=== PATIENT | male | born 1955 | race Caucasian/White ===

== ENCOUNTER 2022-01-23 00:20 | Emergency (ER) | payer MEDICARE, SELFPAY ==
[2022-01-23 00:21] VITALS: BP 151/93; PULSE 74; RESP 15; TEMP 37.1; O2SAT 96; BMI 39.3
--- NOTE | 2022-01-23 00:38 | CT_ITS ---
STUDY: CT ABDOMEN AND PELVIS WITHOUT CONTRAST REASON FOR EXAM: Male, 66 years old. Kidney Stone, R flank pain RADIATION DOSAGE (If Supplied By Facility): CTDIvol = ( 23.91 ) mGy, DLP = ( 1314.12 ) mGycm TECHNIQUE: Transaxial images were obtained from the dome of the diaphragm to the symphysis pubis without oral contrast, and without intravenous contrast. Sagittal and coronal images were reconstructed. Individualized dose optimization techniques were used for this CT. COMPARISON: None. LIMITATIONS: None. LOWER CHEST: Pleural/parenchymal scarring with pleural defect along the lateral right lower lobe with punctate metallic fragments, may represent postsurgical changes.. LIVER: Normal. GALLBLADDER/BILE DUCTS: Normal. PANCREAS: Normal. SPLEEN: Normal. ADRENAL GLANDS: Normal. KIDNEYS/URETERS/BLADDER: Mild right hydroureteronephrosis due to a 9 mm calculus at the right vesicoureteral junction. Additional nonobstructive bilateral nephrolithiasis. Intermediate density partially exophytic right superior pole structure measuring 2.4 x 2.2 cm. Urinary bladder is decompressed, limiting evaluation. Mild urinary bladder wall thickening. RETROPERITONEUM/AORTA: Normal. BOWEL/MESENTERY: Normal. APPENDIX: Identified and normal. PERITONEUM: Normal. REPRODUCTIVE ORGANS: Normal. BONES/SOFT TISSUES: Metallic foci within the deep soft tissues of the right chest wall extending to the pleural surface. No acute osseous abnormality. OTHER: None. CT/Abdomen/Pelvis without Cont IMPRESSION: 1. Mild right hydroureteronephrosis due to a 9 mm calculus at the right vesicoureteral junction. 2. Additional nonobstructive bilateral nephrolithiasis. 3. 2.4 cm intermediate density right renal structure, further characterization with nonemergent MR abdomen with contrast is recommended. 4. Mild urinary bladder wall thickening, may be due to decompression or cystitis. 5. Pleural/parenchymal scarring and metallic fragments along the right lateral pleural space. Correlate with surgical history. Electronically Signed: Allan Sandy MD at 1:56 EDT ,
--- NOTE | 2022-01-23 00:39 | EDS_ITS ---
HPI HPI - GI History of Present Illness Chief Complaint: Flank Pain Informant: patient Abdominal Pain/Flank Pain Onset: Hours (3) Context: Sudden Onset Timing: Continuous Quality: Aching Location: Right Flank (Mostly in back without radiation) Current Severity: Mild Maximum Severity: Severe Worsened by: Nothing Relieved by: - (X-strength Tylenol) Nausea/Vomiting/Emesis GI Symptom: Negative for Nausea and Vomiting Diarrhea/Melena/Hematochezia GI Symptom: Negative for Diarrhea, Melena and Hematochezia Associated Symptoms Associated Symptoms: Negative for Dysuria, Frequency, Hematuria and Urgency Narrative Narrative: Sudden onset of pain in his right low back that started several hours ago, it became pretty severe and he could not find a comfortable position so he took extra strength Tylenol and came to the emergency department but now the Tylenol is kicked and he had his pain is lessened although not resolved. It has been a long time since he had a kidney stone and had to have it surgically removed but he thinks this feels similar, does not exactly sure because it was over 10 years ago. PFSH PFS Medical History Kidney stones Tumor Home Medications NK 01/23/22 [History Last Taken Unknown] hydrocodone-acetaminophen 1 tab PO Q4H PRN PRN 3 Days #18 tablet 01/23/22 [Rx Last Taken Unknown] ondansetron 8 mg PO Q8H PRN PRN #15 tab 01/23/22 [Rx Last Taken Unknown] tamsulosin 0.4 mg PO DAILY #7 capsule 01/23/22 [Rx Last Taken Unknown] Allergy/AdvReac Type Severity Reaction Status Date / Time Penicillins Allergy Hives Verified 01/23/22 00:23 Social History Smoking Status: Never smoker ROS ROS ED Constitutional Constitutional ED: Denies chills or fever(s) Eyes Eyes: Denies change in vision or diplopia ENT ENT ED: Denies rhinorrhea or sore throat Cardiovascular Cardiovascular: Denies chest pain or palpitations Respiratory/Chest Respiratory/Chest: Denies cough or dyspnea Gastrointestinal Gastrointestinal: Denies abdominal pain, diarrhea, nausea or vomiting Genitourinary Genitourinary ED: Reports flank pain; Denies dysuria or hematuria Musculoskeletal Musculoskeletal: Reports back pain; Denies neck pain Integumentary Denies abscess or rash Neurologic Neurologic: Denies headache(s), paresthesias or weakness Psychiatric Psychiatric: Denies anxiety or suicidal thoughts EXAM Physical Exam Const Vital Signs: 01/23/22 00:21 01/23/22 02:20 Temperature 98.7 F Temperature Source Temporal Pulse Rate 74 Respiratory Rate 15 17 Blood Pressure 151/93 H Blood Pressure Mean 112 Pulse Ox 96 98 Oxygen Delivery Method Room Air Room Air Positive well nourished, well developed and obese Constitutional Narrative: Well-appearing no distress General Appearance ED: well developed and NAD Nutritional Appearance: obese HEENT Reports moist mucous membranes normocephalic and atraumatic Eyes PERRL and EOMs intact bilaterally Neck full ROM and supple Resp normal respiratory effort and clear to auscultation bilaterally Cardio regular rate, regular rhythm and no murmurs GI non-tender and non-distended Auscultation: normoactive bowel sounds Palpation: soft Back/Spine normal ROM and normal to inspection General Back: CVA tenderness right (mild) and other FROM Extremity normal to inspection General Extremety ED: Negative for edema, pulses abnormal or tenderness General Extremity: Negative for edema or pulses abnormal Neuro oriented x3, CN's II-XII intact bilaterally and no sensory deficits noted Sensorium / Orientation: awake and alert Motor Exam: strength 5/5 throughout Skin no rashes or lesions noted and no wounds MDM MDM MDM Narrative Medical decision making narrative: Urinalysis shows microscopic hematuria and is otherwise clean. CT shows 9 mm right UVJ stone with mild hydronephrosis/hydroureter. No other acute abnormalities. This explains patient's symptoms. Also there is an indeterminate lesion on the right kidney which I discussed with him, differential may involve simple cysts and it may involve cancer, also I advised he follow-up according to the radiologist's recommendations and get further imaging to differentiate it at some point in the future not emergently. He understood. He did request pain medication although he initially declined an offer for it, he was given Toradol IM and an oral [place] which helped him feel better. I will put him on Flomax in addition to [place] and some Zofran to use as needed, we discussed reasons to return, given urine strainers to go home with, urologic follow-up advised if he does not pass the stone but tolerating/controlling symptoms for 1 week. Lab Data Attestation: I reviewed the patient's lab results. Labs: Laboratory Results - last 24 hr 01/23/22 00:48 Urine Color Yellow Urine Clarity Clear Urine pH 5.0 Ur Specific [place] 1.030 Urine Protein 15 H Urine Glucose (UA) Normal Urine Ketones 5 H Urine Occult Blood 150 H Urine Nitrite Negative Urine Bilirubin Negative Urine Urobilinogen Normal Ur Leukocyte Esterase Negative Urine RBC 0-5 SEEN Urine WBC 0 SEEN Ur Squamous Epith Cells 0 SEEN Urine Bacteria 1+ Urine Mucus 1+ Radiography Diagnostic Testing: Clinical Impression(s) from Imaging Studies Abdomen/Pelvis CT 01/23/22 00:38 IMPRESSION: 1. Mild right hydroureteronephrosis due to a 9 mm calculus at the right vesicoureteral junction. 2. Additional nonobstructive bilateral nephrolithiasis. 3. 2.4 cm intermediate density right renal structure, further characterization with nonemergent MR abdomen with contrast is recommended. 4. Mild urinary bladder wall thickening, may be due to decompression or cystitis. 5. Pleural/parenchymal scarring and metallic fragments along the right lateral pleural space. Correlate with surgical history. Electronically Signed: Allan Sandy MD at 1:56 EDT , Discharge Plan Triage Chief Complaint: Flank Pain ED Provider: Sal Alamo Dx/Rx/DC Orders Clinical Impression: Ureterolithiasis, Renal colic on right side Instructions: ED Urine Strainer, ED Kidney Stone w/ Colic Prescriptions: New hydrocodone-acetaminophen [hydrocodone-acetaminophen] 1 TABLET tablet 1 tab PO Q4H PRN PRN (Reason: Pain) 3 Days Qty: 18 RF: 0 ondansetron [ondansetron] 4 MG tablet 8 mg PO Q8H PRN PRN (Reason: Nausea) Qty: 15 RF: 0 tamsulosin 0.4 mg capsule 0.4 mg PO DAILY Qty: 7 RF: 0 No Action NK RF: 0 Primary Care Provider: Avelino Gray Referrals: Cj Long MD [STAFF PHYSICIAN] - 1 Week if not improving (or [facility] urologist if you prefer) Avelino Gray MD [Primary Care Provider] - Disposition Disposition: Home, Self Care
[2022-01-23 00:52] LABS: Squamous Epithelial Cells - UA 0 SEEN /hpf (0-5); White Blood Cells 0 SEEN /hpf (0-5)
[2022-01-23 00:53] LABS: Color, Urine Yellow (Yellow); Glucose, Dipstick Normal (Normal); Ketone-Dipstick 5 mg/dl (Negative); Leukocyte Esterase-Dipstick Negative /ul (Negative); Nitrite-Dipstick Negative (Negative); Occult Blood-Urine 150 /ul (Negative); Protein-Dipstick 15 mg/dl (Negative); Urine Bilirubin Dipstick Negative (Negative); Urine Clarity Clear (Clear); Urine Urobilinogen Normal (Normal)
[2022-01-23 01:15] LABS: Bacteria 1+ /hpf (None Seen); Mucous, Urine 1+ /hpf (<or=2+); Red Blood Cells-Urine 0-5 SEEN /hpf (0-5)
[2022-01-23] MEDS: HYDROcodone Bitartrate/Apap 5/325 Tablet PO (01:39)
[2022-01-23] MEDS: Ketorolac 15 MG/ML Vial IV (01:39)
[2022-01-23 02:20] VITALS: RESP 17; O2SAT 98
[2022-01-23 02:42] VITALS: BP 141/91; PULSE 64; RESP 16; O2SAT 99
== END 2022-01-23 02:48 | disposition home or self-care (01) ==
PROVIDERS: Emergency Provider Emergency Medicine; PCP Family Medicine; Visit Provider Emergency Medicine
DX: N13.2 Hydronephrosis with renal and ureteral calculous obstruction (principal); N28.9 Disorder of kidney and ureter, unspecified
CPT/HCPCS: 74176; 81001; 96374; 99282

== ENCOUNTER 2025-09-19 11:11 | Inpatient (IN) | payer MEDICARE, SELFPAY ==
[2025-09-19] VITALS (20 sets, daily range): BP systolic 72–165; BP diastolic 53–117; PULSE 0–113; RESP 16–40; TEMP 35.7–37.1; O2SAT 28–93; BMI 41.1; BMI 41.3
--- NOTE | 2025-09-19 11:30 | RAD_ITS ---
PROCEDURE: CHEST 1 VIEW (PORTABLE) 09/19/2025 REASON FOR EXAM: INTUBATION TECHNIQUE: Frontal view of the chest. COMPARISON: None FINDINGS: Hardware: Endotracheal tube is in satisfactory position above the cedric. Nasogastric tube has been introduced in the side hole is near the fundus. The tip is not imaged but is likely over the body. Heart: Heart size is mildly enlarged. Lungs: Atelectasis or airspace disease right upper lobe. This may be exacerbated by the overlying anterior 1st rib. Otherwise, the lungs are clear. Bones: The bones are unremarkable. RAD/Chest 1 View (Portable) IMPRESSION: Satisfactory position of the endotracheal and nasogastric tubes. Reading Location: [id number]
--- NOTE | 2025-09-19 11:32 | EKG12_ITS ---
Test Reason : CODE BLUE Blood Pressure : */* mmHG Vent. Rate : 109 BPM Atrial Rate : 109 BPM P-R Int : 206 ms QRS Dur : 168 ms QT Int : 392 ms P-R-T Axes : 54 -42 -19 degrees QTcB Int : 527 ms Sinus tachycardia Left axis deviation Right bundle branch block Possible Lateral infarct , age undetermined Inferior infarct , age undetermined Abnormal ECG Confirmed by Robert Vides (Doug), editor continuity and script YARY ZAMORA ([id number]) on 09/20/2025 11:06:27 AM Also confirmed by Robert Vides ([id number]), editor continuity and script YARY ZAMORA ([id number]) on 09/21/2025 11:13:18 AM Referred By: NIMO Confirmed By: Robert Vides
--- NOTE | 2025-09-19 11:39 | CT_ITS ---
PROCEDURE: BRAIN/HEAD WITHOUT CONTRAST; SPINE CERVICAL WITHOUT CONTRAS 09/19/2025 REASON FOR EXAM: ALTERED MENTAL STATUS; FALL TECHNIQUE: Procedure Code: CTBR; CTSPC Modality: CT Procedure: BRAIN/HEAD WITHOUT CONTRAST; SPINE CERVICAL WITHOUT CONTRAS Coronal and Sagittal reconstruction series were provided. One or more dose reduction techniques were used (e.g., Automated exposure control, adjustment of the mA and/or kV according to patient size, use of iterative reconstruction technique. RADIATION DOSE SUMMARY: DLP: 1684 mGycm COMPARISON: None. FINDINGS: CT HEAD: No acute hemorrhage. No acute transcortical infarct. 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 Patchy periventricular and subcortical white matter hypodensities likely reflect chronic microvascular ischemic changes. A curvilinear right frontal lobe hyperdensity likely reflects a developmental venous anomaly (series 2 image [id number]). No significant mass effect or brain herniation. The ventricular system and sulci/fissures are within normal limits of size and configuration for the patient's stated age. No extra-axial fluid collection. The basal cisterns are patent. The mastoid air cells are clear. The paranasal sinuses are predominantly clear. The calvarium appears intact. Atherosclerotic calcification of the carotid siphons. CT CERVICAL SPINE: The normal cervical lordosis is maintained. The atlantooccipital and atlantoaxial joints appear normally aligned. The atlas and axis are intact. The remaining cervical vertebral bodies are normal in height. The cervical vertebral bodies are normal in alignment.There is no evidence of focal lytic or sclerotic lesion in the cervical spine. Degenerative changes in the cervical spine. No high-grade spinal canal or neural foraminal stenosis. There is mild prevertebral soft tissue swelling. Partially visualized endotracheal tube extending to the cedric. Partially visualized orogastric tube coursing down the esophagus. CT/Spine Cervical without Contras IMPRESSION: 1. No CT evidence of acute intracranial hemorrhage, transcortical infarct, or s ignificant mass effect. 2. 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 3. No acute fracture or dislocation in the cervical spine. Reading Location: [id number]
--- NOTE | 2025-09-19 11:41 | EX.ED.DYSGE1 ---
HPI History of Present Illness Chief Complaint: Unresponsive Narrative Narrative: Chief complaint and HPI: 70-year-old male with unknown past medical history presents via EMS after ROSC from reported cardiopulmonary arrest. History obtained via EMS. They state that the patient was found unresponsive at [facility] after witnessed fall. A bystander did approximately 30 seconds of CPR in which she then found a faint radial pulse. EMS states on their arrival as well as here patient is minimally responsive with agonal breathing. Review of systems: See HPI Medications: As listed on the chart Allergies: As listed on the chart PFSH: Per chart Vital signs: As listed on the chart. Reviewed. Physical exam: Gen: Minimally responsive, agonal breathing Head: Normocephalic, abrasion to the scalp Eyes: Eyes spontaneously open, no sclera icterus, conjunctiva clear, PERRL ENT: TMs clear BL, dry mucous membranes, face atraumatic, nasal trumpet in Neck: Trachea midline, c-collar applied CV: RRR, no murmurs Resp: Incomprehensible sounds, gag reflex, breath sounds clear to auscultation bilaterally but diminished, agonal breathing, tachypneic GI: Abd soft, non-distended, no rebound or rigidity : Normal external genitalia Musc: Does not withdraw or localize to pain including sternal rub, no deformity Skin: Cool, pale, dusky Neuro: Minimally responsive, GCS 6 PFSH PFSH Medical History Tumor Kidney stones Home Medications ?Medication ?Instructions ?Recorded ?Last Taken ?Type NK 01/23/22 Unknown History Allergy/AdvReac Type Severity Reaction Status Date / Time Penicillins Allergy Hives Verified 09/19/25 11:16 Social History Smoking Status: Never smoker EXAM Physical Exam Const Vital Signs: 09/19/25 11:11 09/19/25 11:15 09/19/25 11:17 Temperature 97.8 F 96.2 F L Temperature [2] Temperature Source Temporal Core Pulse Rate 84 86 100 Pulse Rate [1] Pulse Rate [2] Respiratory Rate 40 H 16 16 Respiratory Rate [2] Respiratory Effort Respiratory Depth Respiratory Pattern Normal Blood Pressure 153/117 H 131/79 H Blood Pressure [2] Blood Pressure Mean 129 96 Pulse Ox 75 73 Oxygen Delivery Method Oxygen Flow Rate (L/min) 100 Fraction of Inspired Oxygen (FIO2) 100 09/19/25 11:17 09/19/25 11:18 09/19/25 11:24 Temperature Temperature [2] 98.7 F Temperature Source Pulse Rate Pulse Rate [1] 0 L Pulse Rate [2] 113 H Respiratory Rate Respiratory Rate [2] 25 H Respiratory Effort Normal Accessory Muscle Use Respiratory Depth Shallow Respiratory Pattern Normal Irregular Blood Pressure Blood Pressure [2] 130/79 H Blood Pressure Mean Pulse Ox Oxygen Delivery Method Ambu-Bag Oxygen Flow Rate (L/min) Fraction of Inspired Oxygen (FIO2) 09/19/25 12:17 09/19/25 13:11 09/19/25 13:33 Temperature 98.5 F 98.2 F Temperature [2] Temperature Source Core Core Pulse Rate 94 98 93 Pulse Rate [1] Pulse Rate [2] Respiratory Rate 20 H 22 H 22 H Respiratory Rate [2] Respiratory Effort Respiratory Depth Respiratory Pattern Blood Pressure 165/89 H 148/86 H 142/82 H Blood Pressure [2] Blood Pressure Mean 114 106 102 Pulse Ox 93 93 93 Oxygen Delivery Method Mechanical Ventilator Mechanical Ventilator Room Air Oxygen Flow Rate (L/min) Fraction of Inspired Oxygen (FIO2) MDM MDM MDM Narrative Medical decision making narrative: 70-year-old male with unknown past medical history presents via EMS after ROSC from reported cardiopulmonary arrest. History obtained via EMS. They state that the patient was found unresponsive at [facility] after witnessed fall. A bystander did approximately 30 seconds of CPR in which she then found a faint radial pulse. EMS states on their arrival as well as here patient is minimally responsive with agonal breathing. GCS 6. Pupils are equal and reactive bilaterally. CODE STATUS unknown but suspect full code. Patient emergently/immediately intubated. After intubation, patient became bradycardic and patient entered into cardiopulmonary arrest. CPR was immediately started with ACLS protocol. Epinephrine given. Patient regained pulse but in unstable ventricular tachycardia. Synchronized cardioverted at 200 J. Converted to sinus tachycardia. Converted back to unstable ventricular tachycardia. Synchronized cardioverted at 200 J. Patient converted to sinus tachycardia. Amio bolus and drip started. Bicarb ordered as I suspect acidosis given his hypoxia and agonal breathing. EKG obtained. EKG was personally reviewed and interpreted by me, ED physician. Sinus tachycardia with heart rate of 109. Nonspecific ST changes. No STEMI. Right bundle branch block. Bedside echocardiogram was performed, no large pleural effusion visualized. Interventional cardiology was consulted. He will evaluate the patient. Agrees with further workup at this time given no STEMI. Patient's family member now at bedside. Patient does not frequently go to the doctors. States that he was a little confused yesterday while playing a game but otherwise had no complaints. NS bolus ordered. Empiric antibiotics with vancomycin and Zosyn ordered. Laboratory workup ordered including CTA chest to assess for PE. Differential diagnosis includes but is not limited to ACS, PE, arrhythmia, electrolyte abnormality, SILVIO, intracranial bleed, viral illness, pneumonia, cervical fracture. ABG is difficult to obtain. Patient acidotic and hypercapnic. Already requiring a PEEP of 12 for oxygenation. Will increase respiratory rate from 16-22. 2 A of bicarb given. Will repeat ABG. Patient taken to CT. I personally looked at the CTA which was positive for saddle PE. I personally looked at the CT brain in which I did not see a head bleed. Patient was started on heparin with bolus. CBC with leukocytosis of 13. No anemia. Platelets unremarkable. INR unremarkable. CMP with hyperkalemia and renal insufficiency. Unknown if this is acute or not. Metabolic acidosis with a gap of 23. Lactic acid 11. IV potassium ordered. Magnesium level elevated at 2.6. Initial troponin unremarkable. Repeat 310. BNP unremarkable. UA negative for UTI. COVID, flu, RSV negative. Alcohol level unremarkable. Urine drug screen unremarkable. I personally received a call from the radiologist about the CTA results. Heparin was already started. CTA shows extensive bilateral PE. Admitted evidence of right heart strain with interventricular septal flattening and reflux of contrast into the IVC. Right lower lobe. Peripheral triangular opacities, consistent with pulmonary infarcts. Cardiomegaly with CAD. Incidental right renal upper pole 23 mm in determinate lesion. Recommend further workup. CT of the brain negative for intracranial hemorrhage or infarct. 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 CT of the cervical spine negative for acute fracture or dislocation. Prior to complete workup, Dr. Odell was down in the emergency department in which I did inform him that room 2 would need the ICU. He personally called me on the phone. He evaluated the patient and already talked to Dr. Foy who plans on thrombolysis tomorrow. Family was updated on all the results and the plan. Patient warrant admission. Spoke with the hospitalist who accepted admission. Interventional cardiology and Dr. Foy evaluate the patient in the emergency department. They did personally talk to me about the patient. Patient transferred to the ICU. Diagnostic: Interpreted by me/EM physician:Chest x-ray was personally viewed interpreted by me, ED physician. ET tube in place. No pneumothorax. NG tube in place. Cardiomegaly. Endotracheal Intubation Indication: Respiratory distress/airway protection Consent: Emergent] Procedure: The patient was on a conveyor monitor including continuous pulse oximetry. Rapid Sequence Intubation was conducted. The patient received 20 mg of Etomidate for induction and 80 mg of Rocuronium for adequate paralysis. Using a glide laryngoscope and a size 8 endotracheal tube with stylet, the patient was intubated on the first attempt. The stylet was removed, and the cuff balloon was inflated. Appropriate endotracheal tube position was confirmed by direct visualization of vocal cord passage, fogging of the tube, CO2 colorimetric indicator and symmetric breath sounds. The tube was secured at 24 cm at the lips. 60 minutes of critical care time utilized in managing the patient. This is due to high probability of and deterioration of the patient based on the patient's condition and excludes any separately billable procedures. Impression: 1. Saddle PE with right heart strain and pulmonary infarcts 2. ROSC status post cardiopulmonary arrest secondary to #1 3. Acute hypoxic respiratory failure requiring mechanical ventilation secondary to #1 4. Ventricular tachycardia, synchronized cardioversion, converted to sinus tachycardia secondary to #1 5. Metabolic acidosis, multifactorial 6. Renal insufficiency, acute versus chronic 7. Hypokalemia 8. Elevated troponin, multifactorial Lab Data Labs: Laboratory Results - last 24 hr 09/19/25 09/19/25 09/19/25 11:17 11:47 13:03 WBC 13.0 H RBC 4.57 L Hgb 14.3 Hct 46.8 MCV 102.4 H MCH 31.3 MCHC 30.6 L RDW Std Deviation 50.4 H RDW Coeff of [place] 13.2 Plt Count 181 MPV 10.9 Immature Gran % (Auto) 1.900 H Neut % (Auto) 52.1 Lymph % (Auto) 34.1 [place] % (Auto) 9.0 Eos % (Auto) 1.7 Baso % (Auto) 1.2 H Absolute Neuts (auto) 6.8 Absolute Lymphs (auto) 4.43 Nucleated RBC % 0.2 PT 16.6 H INR 1.3 APTT 29.1 Sodium 143 Potassium 2.9 L Chloride 101 Carbon Dioxide 18.1 L Anion Gap 23 H BUN 13 Creatinine 1.41 H Estim Creat Clear Calc 43.94 L Est GFR (MDRD) Non-Af 54 L BUN/Creatinine Ratio 9.4 L Glucose 201 H Lactic Acid 11.0 H* Calcium 9.6 Magnesium 2.6 H Total Bilirubin 0.53 AST 26 ALT 17 Alkaline Phosphatase 75 Total Creatine Kinase 81 Troponin T High Sens 19 NT pro BNP II 139 Total Protein 7.1 Albumin 4.0 Globulin 3.2 Albumin/Globulin Ratio 1.2 Triglycerides 254 H Urine Color Yellow Urine Clarity Cloudy Urine pH 6.5 Ur Specific [place] 1.020 Urine Protein 500 H Urine Glucose (UA) 100 H Urine Ketones Negative Urine Occult Blood 250 H Urine Nitrite Negative Urine Bilirubin Negative Urine Urobilinogen Normal Ur Leukocyte Esterase Negative Urine RBC 5-10 SEEN Urine WBC 0-5 SEEN Ur Squamous Epith Cells 0 SEEN Amorphous Sediment 1+ Urine Bacteria 0 SEEN Urine Mucus 0 SEEN Urine Opiates Screen NEGATIVE U Buprenorphine Qual NEGATIVE Ur Oxycodone Screen NEGATIVE Urine Methadone Screen NEGATIVE Urine Fentanyl Screen NEGATIVE Ur Barbiturates Screen NEGATIVE Ur Phencyclidine Scrn NEGATIVE Ur Amphetamines Screen NEGATIVE U Benzodiazepines Scrn NEGATIVE Urine Cocaine Screen NEGATIVE U Cannabinoids Screen NEGATIVE Ethyl Alcohol < 10.1 ABG Data ABG results: ABG 09/19/25 09/19/25 09/19/25 11:45 12:14 13:36 Specimen Type ART ART ART Sample Site L Radial R Radial L Radial pH 6.86 L* 6.92 L* 7.08 L* Bicarbonate Actual 23.0 24.7 26.3 H Total CO2 27 29 29 Base Excess -11 L -8 L -4 L O2 Saturation 59 L 79 L 85 L O2 % 15.0 100.0 100.0 ABG pCO2 127.8 H* 121.6 H* 89.3 H* ABG pO2 56 L 74 L 72 L Bennie Test Positive Positive Respiration Rate 16 22 O2 Delivery Device Bagging Adult Vent Adult Vent Vent Mode Not entered Not entered AC/VC Tidal Volume 500.0 POC PEEP 12 Crit Call To/Read Back Yes Yes Yes Blood Gas Notified Whom Dr. Edenilson Pyle Blood Gas Notified Time 11:46:57 13:41:44 Radiography Diagnostic Testing: Clinical Impression(s) from Imaging Studies Chest X-Ray 09/19/25 11:30 IMPRESSION: Satisfactory position of the endotracheal and nasogastric tubes. Reading Location: [id number] Brain CT 09/19/25 11:31 IMPRESSION: 1. No CT evidence of acute intracranial hemorrhage, transcortical infarct, or significant mass effect. 2. 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 3. No acute fracture or dislocation in the cervical spine. Reading Location: [id number] Cervical Spine CT 09/19/25 11:39 IMPRESSION: 1. No CT evidence of acute intracranial hemorrhage, transcortical infarct, or significant mass effect. 2. 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 3. No acute fracture or dislocation in the cervical spine. Reading Location: [id number] Chest CTA 09/19/25 11:43 IMPRESSION: Extensive bilateral pulmonary emboli involving the right and left main, lobar, segmental, and subsegmental pulmonary arteries. Imaging evidence of right heart strain with interventricular septal flattening and reflux of contrast into the inferior vena cava. Right lower lobe peripheral triangular opacities, most consistent with pulmonary infarcts. Cardiomegaly with coronary artery calcifications. Incidental right renal upper pole 23 mm indeterminate lesion with attenuation of 44 Hounsfield units, incompletely characterized on this examination. Further evaluation with nonemergent dedicated renal protocol CT or MRI is recommended. Critical results were communicated to EMETERIO BOURGEOIS DR. At 1:20 p.m.. Reading Location: [facility] Discharge Plan Disposition Disposition: Acute Care Hospital [facility] Discharge Date/Time: 09/19/25 15:19
--- NOTE | 2025-09-19 11:43 | CT_ITS ---
PROCEDURE: CTA CHEST W/WO CONTRAST 09/19/2025 REASON FOR EXAM: PE, S/P CARDIOPULMONARY ARREST TECHNIQUE: Procedure Code: [id number] Modality: CT Procedure: CTA CHEST W/WO CONTRAST Multiplanar Sagittal and Coronal images were obtained. MIPS imaging was utilized. RADIATION DOSE SUMMARY: CTDlvol: 14 mGy DLP: 536 mGycm FINDINGS: The peripheral soft tissues are unremarkable. Degenerative changes of the spine. Endotracheal tube with tip terminating 2 cm above the cedric. Orogastric tube with tip terminating within the mid gastric body. Right kidney upper pole 23 mm lesion with Hounsfield attenuation of 44. Partially visualized right kidney calculus. Normal caliber thoracic aorta. Mild atherosclerosis. The heart is enlarged. Coronary artery calcifications are present. No suspicious mediastinal lymphadenopathy. Pulmonary artery bilateral right and left main, lobar, segmental, and subsegmental pulmonary emboli. Flattening of the interventricular septum and reflux of contrast into the IVC. Right lower lobe superior segment density with a somewhat triangular morphology popliteal bili represent a renal infarct. Right below this density there is another density with a somewhat triangular morphology also possibly representing a pulmonary infarct. CT/CTA Chest W/WO Contrast IMPRESSION: Extensive bilateral pulmonary emboli involving the right and left main, lobar, segmental, and subsegmental pulmonary arteries. Imaging evidence of right heart strain with interventricular septal flattening and reflux of contrast into the inferior vena cava. Right lower lobe peripheral triangular opacities, most consistent with pulmonar y infarcts. Cardiomegaly with coronary artery calcifications. Incidental right renal upper pole 23 mm indeterminate lesion with attenuation o f 44 Hounsfield units, incompletely characterized on this examination. Further evaluation with nonemergent dedicated renal protoc ol CT or MRI is recommended. Critical results were communicated to EMETERIO BOURGEOIS DR. At 1:20 p.m.. Reading [facility]
[2025-09-19 11:49] LABS: Allen Test Positive; Base Excess -11 mmol/L (-2 to +2); FI02 15.0; PO2 56 mmHG (75-100); SITE L Radial; SO2 59 % (94-98)
[2025-09-19 11:51] LABS: Troponin T High Sensitivity 19 ng/L (<=22)
[2025-09-19] MEDS: 0.9% Normal Saline (1000mL) 1,000 ML 1000 ML IV (11:51)
[2025-09-19] MEDS: Amiodarone 360 MG in Dextrose 5% Viaflo Bag 192.8 ML 33.3 MG CONT INF (11:51)
[2025-09-19 11:54] LABS: AST(SGOT) 26 U/L (<=37); Alanine Aminotransfer ALT/SGPT 17 U/L (<=46); Albumin, Serum 4.0 g/dL (3.4-4.8); Alkaline Phosphatase 75 U/L (40-129); Anion Gap 23 (5-15); BUN 13 mg/dL (4-19); BUN/Creat Ratio 9.4 RATIO (10-20); Calcium,Total 9.6 mg/dL (7.6-11.0); Carbon Dioxide 18.1 mmol/L (21.0-32.0); Chloride 101 mmol/L (98-108); Estimated Creatinine Clearance 43.94 ml/min (50-250); Globulin 3.2 g/dL (2.2-4.2); Glucose 201 mg/dL (70-99); Potassium 2.9 mmol/L (3.3-5.1); Pro- Brain NATRIURETIC PEPTIDE 139 pg/mL (<=900)
[2025-09-19] MEDS: Meropenem 1 GM in 0.9% Normal Saline (100mL MB+) 100 ML IV (12:04)
[2025-09-19 12:13] LABS: Hematocrit 46.8 % (40-54); Hemoglobin 14.3 g/dL (13.0-16.5); Immature Granulocytes Count 0.250 X10^3/uL (0.0-0.0); Mean Corp Hgb Conc 30.6 g/dL (32-36); Mean Corpuscular Volume 102.4 fL (80-94); Mean Platelet Vol. 10.9 fl (6.2-12.0); NRBC Flagged by Analyzer 0.2 % (0-5); Platelet Count 181 K/mm3 (150-450); RBC Distribution Width CV 13.2 % (11.6-14.6); RBC Distribution Width SD 50.4 fl (35.1-43.9); Red Blood Count 4.57 M/mm3 (4.6-6.2); White Blood Count 13.0 K/mm3 (4.4-11.0)
[2025-09-19 12:18] LABS: Base Excess -8 mmol/L (-2 to +2); FI02 100.0; PO2 74 mmHG (75-100); RR 16; SITE R Radial; SO2 79 % (94-98)
[2025-09-19 12:19] LABS: Partial Thromboplast Time 29.1 Seconds (24.1-36.2); Prothrombin Time (Protime)PT. 16.6 SECONDS (11.7-14.9)
--- NOTE | 2025-09-19 12:20 | CPS ---
ABG critical result given to ER Dr. Pyle. ABG rer-an also
[2025-09-19 12:25] LABS: Magnesium 2.6 mg/dL (1.5-2.2)
[2025-09-19 12:30] LABS: Alcohol, Blood (Medical)-Serum < 10.1 mg/dL (<=10.0)
[2025-09-19] MEDS: Sodium Bicarbonate 8.4% 50 ML Syringe 100 MEQ IV (12:57)
[2025-09-19] MEDS: Vancomycin HCl 1,500 MG in 0.9% Normal Saline (500mL Bag) 500 ML 250 MG IV (12:57)
[2025-09-19 13:09] LABS: Mucous, Urine 0 SEEN /hpf (<or=2+); Squamous Epithelial Cells - UA 0 SEEN /hpf (0-5)
[2025-09-19 13:13] LABS: Color, Urine Yellow (Yellow); Glucose, Dipstick 100 mg/dl (Normal); Ketone-Dipstick Negative (Negative); Leukocyte Esterase-Dipstick Negative /ul (Negative); Nitrite-Dipstick Negative (Negative); Occult Blood-Urine 250 /ul (Negative); Protein-Dipstick 500 mg/dl (Negative); Specific Gravity, Urine 1.020 (1.002-1.030); Urine Bilirubin Dipstick Negative (Negative)
--- NOTE | 2025-09-19 13:19 | EX.PCM.CONCC ---
Assessment & Plan Assessment/Plan (1) Acute respiratory failure with hypoxia and hypercapnia: PLAN: Plan RECOMMENDATIONS: 1. Continue assist-control mode of mechanical ventilation. Wean FiO2 and PEEP as tolerated. 2. Initiate empiric antimicrobial therapy. 3. Agree with weight-based heparin infusion. 4. Start Protonix for GI prophylaxis. 5. Obtain stat echocardiogram. 6. If the patient decompensates clinically, recommend administration of systemic lytics. 7. Consider thrombectomy, pending further workup. 8. Goals of care discussion with family. 9. Hold all sedating medications. IMPRESSIONS: 1. Acute respiratory failure with hypoxemia and hypercapnia Most likely secondary to extensive acute bilateral PE with associated radiographic evidence of right heart strain. Despite the aforementioned, the patient has a normal BNP and troponin and is hemodynamically stable, at the present time. Plan is to continue assist-control mode of mechanical ventilation. The patient is significantly acidotic at the present time. The patient will be started on a weight-based heparin infusion with stat echocardiogram to be obtained. This case was discussed with vascular surgery, who will consider thrombectomy, depending on the patient's clinical course. In the short-term, however, if the patient were to become hemodynamically unstable, systemic lytics would be indicated. Empiric antimicrobials will be initiated to cover for possible aspiration. 2. Encephalopathy Clinical concern for some degree of anoxic brain injury. Recommend holding all sedating medications to further assess neurologic status. TIME: 37 minutes of critical care time, independent of procedures, was spent addressing the patient's respiratory failure, encephalopathy, review of all data and collaboration with the care team. HPI Consult Data Date of Consult: 09/19/25 HPI Narrative Reason for Consultation: Cardiac arrest, acute respiratory failure HPI Narrative: The patient is a 70-year-old male, with a history as outlined below, who presented to the emergency department on September 19 via EMS after becoming acutely unresponsive while entering a local business. According to EMS report, the patient was being followed into the local store by a nurse practitioner, who immediately assessed the patient. Initially, the patient was found to be pulseless, for which CPR was initiated for approximately 30 seconds prior to regaining a pulse. However, the patient remained apneic and cyanotic at the scene. On arrival to the emergency department, the patient was still noted to be apneic and was therefore emergently intubated. According to my conversation with the ED provider, the patient experienced a brief cardiac arrest following intubation with ROSC ultimately achieved, following the initiation of ACLS. Laboratory workup was notable for a white blood cell count of 13,000. The patient was extremely acidotic with a pH of 6.86 with a pCO2 of 128 and pO2 of 56. Chemistry profile was notable for a potassium of 2.9 with a creatinine of 1.4 and lactate of 11.0. Ironically, troponin and BNP were normal. Urine analysis was unremarkable. Head CT revealed no evidence of acute intracranial hemorrhage or infarct. CT C-spine was negative for fracture or dislocation. CTA chest was notable for bilateral pulmonary emboli. The patient was initiated on antimicrobials along with a weight-based heparin infusion. He was admitted to the medical intensive care unit for further management. I did speak with vascular surgery regarding the patient's case and clot burden noted on CTA chest. Preliminarily, the patient would be a candidate for thrombectomy. I did ask that a stat echocardiogram be obtained to evaluate for RV dysfunction. [facility] Medical History Tumor Kidney stones Home Medications ?Medication ?Instructions ?Recorded ?Last Taken ?Type NK 01/23/22 Unknown History Allergy/AdvReac Type Severity Reaction Status Date / Time Penicillins Allergy Hives Verified 09/19/25 11:16 Social History Smoking Status: Never smoker ROS Review of Systems ROS Unobtainable: due to endotracheal tube and due to mental status Physical Exam Const Constitutional Narrative: Intubated, sedated and mechanically ventilated. Morbidly obese. General Appearance: ill appearing HEENT normocephalic and head/scalp atraumatic Mouth: endotracheal tube in place and OG tube in place Eyes no scleral icterus Neck supple General: trachea midline Chest inspection of chest normal Resp Auscultation: diminished lung sounds; Negative for rales, rhonchi or wheezes Cardio regular rate and regular rhythm GI normal to inspection, nondistended, normoactive bowel sounds Extremity no clubbing, cyanosis or edema Skin no rashes or lesions noted Neuro Sensorium / Orientation: sedated on vent Lab / Micro Data 09/19/25 11:17 09/19/25 11:17 Labs: Laboratory Results - last 24 hr 09/19/25 11:17: WBC 13.0 H, RBC 4.57 L, Hgb 14.3, Hct 46.8, MCV 102.4 H, MCH 31.3, MCHC 30.6 L, RDW Std Deviation 50.4 H, RDW Coeff of [place] 13.2, Plt Count 181, MPV 10.9, Immature Gran % (Auto) 1.900 H, Neut % (Auto) 52.1, Lymph % (Auto) 34.1, [place] % (Auto) 9.0, Eos % (Auto) 1.7, Baso % (Auto) 1.2 H, Absolute Neuts (auto) 6.8, Absolute Lymphs (auto) 4.43, Nucleated RBC % 0.2, PT 16.6 H, INR 1.3, APTT 29.1, Sodium 143, Potassium 2.9 L, Chloride 101, Carbon Dioxide 18.1 L, Anion Gap 23 H, BUN 13, Creatinine 1.41 H, Estim Creat Clear Calc 43.94 L, Est GFR (MDRD) Non-Af 54 L, BUN/Creatinine Ratio 9.4 L, Glucose 201 H, Lactic Acid 11.0 H*, Calcium 9.6, Magnesium 2.6 H, Total Bilirubin 0.53, AST 26, ALT 17, Alkaline Phosphatase 75, Troponin T High Sens 19, NT pro BNP II 139, Total Protein 7.1, Albumin 4.0, Globulin 3.2, Albumin/Globulin Ratio 1.2 09/19/25 11:47: Ethyl Alcohol < 10.1 09/19/25 13:03: Urine Color Yellow, Urine Clarity Cloudy, Urine pH 6.5, Ur Specific [place] 1.020, Urine Protein 500 H, Urine Glucose (UA) 100 H, Urine Ketones Negative, Urine Occult Blood 250 H, Urine Nitrite Negative, Urine Bilirubin Negative, Urine Urobilinogen Normal, Ur Leukocyte Esterase Negative Micro: Microbiology 09/19/25 12:17 Mucosa - Nose SARS-CoV-2, Influenza & RSV (PCR) - Final ABG Data ABG results: ABG 09/19/25 09/19/25 11:45 12:14 Specimen Type ART ART Sample Site L Radial R Radial pH 6.86 L* 6.92 L* Bicarbonate Actual 23.0 24.7 Total CO2 27 29 Base Excess -11 L -8 L O2 Saturation 59 L 79 L O2 % 15.0 100.0 ABG pCO2 127.8 H* 121.6 H* ABG pO2 56 L 74 L Bennie Test Positive Respiration Rate 16 O2 Delivery Device Bagging Adult Vent Vent Mode Not entered Not entered Crit Call To/Read Back Yes Yes Blood Gas Notified Whom Dr. Pyle Blood Gas Notified Time 11:46:57 Imaging Radiology Impression Chest X-Ray 09/19/25 11:30 IMPRESSION: Satisfactory position of the endotracheal and nasogastric tubes. Reading Location: [facility] Brain CT 09/19/25 11:31 IMPRESSION: 1. No CT evidence of acute intracranial hemorrhage, transcortical infarct, or significant mass effect. 2. 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 3. No acute fracture or dislocation in the cervical spine. Reading Location: [facility] Cervical Spine CT 09/19/25 11:39 IMPRESSION: 1. No CT evidence of acute intracranial hemorrhage, transcortical infarct, or significant mass effect. 2. 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 3. No acute fracture or dislocation in the cervical spine. Reading Location: [facility] Charges/Coding Procedures Hospitalists Procedures: 27877 Critical Care 1st Hr
[2025-09-19 13:20] LABS: CPK Total, Creatine Kinase 81 U/L (24-195); Triglycerides 254 mg/dL
--- NOTE | 2025-09-19 13:23 | ED.RN ---
dr murphy gave verbal order to cancel sepsis screen/alert as pt. is not septic
[2025-09-19 13:42] LABS: Barbiturate Urine NEGATIVE (< 200 ng/mL); Benzodiazepine Urine NEGATIVE (< 200 ng/mL); PCP Urine NEGATIVE (< 25 ng/mL); THC Urine NEGATIVE (< 50 ng/mL)
[2025-09-19] MEDS: Heparin Injection (Vial) 5,000 UNIT/ML VIAL 5000 UNIT IV (13:42)
[2025-09-19 13:45] LABS: Allen Test Positive; Base Excess -4 mmol/L (-2 to +2); FI02 100.0; PEEP 12; PO2 72 mmHG (75-100); RR 22; SITE L Radial; SO2 85 % (94-98)
[2025-09-19 13:47] LABS: Red Blood Cells-Urine 5-10 SEEN /hpf (0-5)
[2025-09-19] MEDS: HEPARIN/D5w 25,000 UNITS 25,000 UNITS/250 ML IV.SOLN. 22 UNITS CONT INF (13:49)
--- NOTE | 2025-09-19 14:02 | ECHOD_ITS ---
Reason For Study Reason For Study: PULMONARY EMBOLISM Procedure This was a 2D Doppler, Color Flow transthoracic echocardiogram. The study was technically difficult. Exam performed portable in ED. Left Ventricle Normal LV size. Moderate concentric left ventricular hypertrophy. The estimated ejection fraction is 55???60 %. Unable to assess diastolic dysfunction. Right Ventricle Severely dilated right ventricle. Moderate global right ventricular systolic dysfunction. Atria Normal left atrium. The right atrium is moderately enlarged. Mitral Valve Leaflets not well-visualized however appears to have mild to moderate thickening at the leaflet tips. Some concern for endocarditis. There is no mitral valve stenosis. Trivial mitral valve insufficiency. Tricuspid Valve The tricuspid valve is not well visualized. There is no tricuspid stenosis. Mild (1+) tricuspid valve insufficiency. Right ventricular systolic pressure estimated to be 45???50 mmHg. Moderate pulmonary hypertension. Aortic Valve The aortic valve is not well visualized in the short axis view. There is no aortic valve stenosis. Trivial aortic valve insufficiency. Pulmonic Valve The pulmonic valve is not well visualized. Great Vessels Dilated coronary sinus noted. Ascending aorta mildly dilated at 3.6 cm. IVC borderline dilated unable to evaluate respiratory collapse adequately due to patient being on a ventilator. Pericardium/Pleural No pericardial effusion. MMode/2D Measurements & Calculations LVIDd: 4.3 cm IVSd: 1.4 cm Ao root diam: 3.6 cm LVIDs: 2.8 cm LVPWd: 1.5 cm FS: 33.6 % RA A4 area: 17.4 cm2 Time Measurements MV dec time: 0.13 sec Doppler Measurements & Calculations MV E max clark: 60.7 cm/sec Lat Peak E' Clark: 8.8 cm/sec Med Peak E' Clark: 4.8 cm/sec MV A max clark: 73.2 cm/sec E/E' lat: 6.9 E/E' med: 12.7 MV E/A: 0.83 MV V2 max: 74.8 cm/sec MV dec slope: 467.4 cm/sec2 Ao V2 max: 123.3 cm/sec MV max P.2 mmHg Ao max P.1 mmHg MV V2 mean: 47.4 cm/sec Ao V2 mean: 83.3 cm/sec MV mean P.0 mmHg Ao mean P.3 mmHg MV V2 VTI: 20.5 cm Ao V2 VTI: 16.2 cm AV (velocity ratio): 1.1 LV V1 max: 101.7 cm/sec TR max clark: 335.7 cm/sec LV V1 max P.1 mmHg TR max P.1 mmHg LV V1 mean P.3 mmHg LV V1 mean: 70.9 cm/sec LV V1 VTI: 18.3 cm ECHO/Echo Complete Interpretation Summary The estimated ejection fraction is 55???60 %. Unable to assess diastolic dysfunction. Severely dilated right ventricle. Moderate global right ventricular systolic dysfunction. The right atrium is moderately enlarged. Mild (1+) tricuspid valve insufficiency. Right ventricular systolic pressure estimated to be 45???50 mmHg. Moderate pulmonary hypertension. IVC borderline dilated unable to evaluate respiratory collapse adequately due t o patient being on a ventilator. Ordering Physician: Adam Westbrook Referring Physician: DHARA DE LEON Performed By: Chary Huerta RCS
[2025-09-19 14:34] LABS: Troponin T High Sens 2 HR 310 ng/L (<=22)
--- NOTE | 2025-09-19 15:00 | PCM.CONS.C ---
Assessment & Plan Assessment/Plan (1) Cardiac arrest: PLAN: ? Patient status post cardiac arrest. Appears to be VT arrest post intubation. ? It is possible that the severe hypoxemia and metabolic acidosis could have led to VT arrest. Also consideration for pulmonary embolism however more often this leads to PEA. No further episodes of VT appreciated at this time ? Guarded long-term prognosis and patient with no neurologic activity appreciated upon arrival to the ED. ? For now we will recommend monitoring if capable consider hypothermic protocol ? Maintain normal electrolytes with goal potassium greater than 4.0 and magnesium greater than 2.0 ? Cardiology will follow. Await further evaluation of neurologic status. (2) Acute respiratory failure with hypoxia and hypercapnia: PLAN: ? Etiology likely cardiac arrest or could have been related to his pulmonary embolism leading to respiratory failure and hypoxemia. ? Patient currently intubated and sedated with good O2 saturation ?Continue monitoring and management by ICU team. Wean O2 as tolerated. (3) Acute pulmonary embolism with acute cor pulmonale: PLAN: ? CT scan with bilateral main stem thrombus appreciated left greater than right. ? RV dilated with reduced function however patient not hypotensive, tachycardic, or other concerning findings for massive PE ? Also cardiac troponin and NT proBNP within normal limits considered less likely submassive pulmonary embolism. ? I suspect this is a subacute event and potentially incidental finding. Will need to monitor closely and if there is some hemodynamic compromise proceed with a more urgent thrombectomy. Discussion with vascular surgery about plan of care. ? For now continue on heparin drip with close monitoring. (4) Ventricular tachycardia: PLAN: ? Unsure of etiology. Patient with no significant risk factors for ACS/CAD however at his age some concern for ischemia ? Echocardiogram with low normal ejection fraction no clear wall motion abnormalities appreciated ? As noted above recommend maintaining normal electrolytes with goal potassium greater than 4.0 magnesium greater than 2.0 ? Continue amiodarone drip for now will consider weaning off in next 24 to 48 hours. PLAN: Plan ? For now continue with aggressive medical management and reevaluate neurologic status. ? If patient does have neurologic recovery can consider more aggressive interventions including pulmonary thrombectomy as well as left heart catheterization ? Cardiology will follow. ?50 minutes of critical care time completed during this visit. This excludes any procedures and only details the time spent evaluating the patient as well as completing notes and discussing plan of care with his family and vascular surgery as well as other providers. HPI Consult Data Date of Consult: 09/19/25 HPI Narrative Reason for Consultation: Cardiac arrest, nonsustained ventricular tachycardia HPI Narrative: HAYES GORDON, is a 70 M with unknown past medical history presented to the ED after what appears to be possible cardiac arrest while shopping. Discussion with the ED physician and review of notes and it appears that the patient was out shopping and was found down on the floor by a healthcare provider in the store. Apparently patient did undergo bystander CPR and after rechecking did noticed a pulse. It is noted that apparently the patient had agonal respirations upon EMS arrival therefore utilizing the bag valve mask along with some O2 patient was transported to the hospital for evaluation. Discussed with the ED physician and they report that patient had continued agonal respirations upon arrival along with no neurologic responsiveness therefore he was provided some rocuronium and intubated. ABGs noted severe acidemia and therefore vent settings were adjusted as well patient provided with bicarb however it is noted that he became bradycardic and appeared to go into ventricular tachycardia requiring defibrillation as well as CPR and epinephrine. Reports that patient was not down for long and upon reevaluation was back in sinus tachycardia. He was initiated on amiodarone drip after a bolus and no reports of further ventricular tachycardia. Patient did undergo evaluation with a CT scan and it was noted that he has a bilateral pulmonary embolism with some extension into the left main bronchus and distal right main bronchus. Significant RV dilation is noted as well on the CT scan however patient is hemodynamically stable with normal blood pressure and no significant tachycardia [highest heart rate documented at 100 bpm]. Cardiology consulted for help with monitoring and management. Labs obtained and cardiac troponin as well as BNP within normal limits no other severe abnormalities appreciated besides for acidemia. [facility] Medical History Tumor Kidney stones Home Medications ?Medication ?Instructions ?Recorded ?Last Taken ?Type NK 01/23/22 Unknown History Allergy/AdvReac Type Severity Reaction Status Date / Time Penicillins Allergy Hives Verified 09/19/25 11:16 Social History Smoking Status: Never smoker ROS ROS Narrative Unable to complete due to patient being intubated and sedated Physical Exam Narrative Patient currently intubated and sedated in no acute distress. Eyes Eyes Narrative: Pupils slightly dilated appear to be moderately reactive Resp Resp Narrative: Currently intubated and sedated with good O2 saturation. Not able to appreciate any significant wheezes, rales, or rhonchi Cardio regular rate, no murmurs, no rub and no gallops Cardio Narrative: Not able to appreciate any significant JVD however examination is difficult GI GI Narrative: Abdomen soft nondistended. Not able to appreciate any significant bowel sounds Extremity Extremity Narrative: No significant edema appreciated Skin no rashes or lesions noted Neuro Neuro Narrative: Patient status post rocuronium with normal neurologic activity appreciated. Psych Psych Narrative: Unable to complete exam due to patient being intubated and sedated Charges/Coding Visit Charges Inpatient E&M: 25772 Init Hosp L3 (Recommend billing critical care time 26713. Total critical care time 50 minutes documented.) Objective Data Vital Signs: Vital Signs Temp Pulse Resp BP Pulse Ox O2 Del Method O2 Flow Rate 98.2 F 91 22 H 132/81 H 92 Mechanical Ventilator 100 09/19/25 14:06 09/19/25 14:06 09/19/25 14:06 09/19/25 14:06 09/19/25 14:06 09/19/25 14:00 09/19/25 11:17 FiO2 100 09/19/25 11:15 Oxygen Flow Rate (L/min) 100 Oxygen Delivery Method Mechanical Ventilator Weight: 330 lb 9.6 oz Body Mass Index (BMI) 41.3 Intake & Output: Intake and Output for Last 24 Hours 09/17/25 09/18/25 09/19/25 23:59 23:59 23:59 Intake Total 0 / 0 Balance 0 / 0 Lab / Micro Data Attestation: I reviewed the patient's lab results. 09/19/25 11:17 09/19/25 11:17 Labs: Laboratory Results - last 24 hr 09/19/25 11:17: WBC 13.0 H, RBC 4.57 L, Hgb 14.3, Hct 46.8, MCV 102.4 H, MCH 31.3, MCHC 30.6 L, RDW Std Deviation 50.4 H, RDW Coeff of [place] 13.2, Plt Count 181, MPV 10.9, Immature Gran % (Auto) 1.900 H, Neut % (Auto) 52.1, Lymph % (Auto) 34.1, [place]key % (Auto) 9.0, Eos % (Auto) 1.7, Baso % (Auto) 1.2 H, Absolute Neuts (auto) 6.8, Absolute Lymphs (auto) 4.43, Nucleated RBC % 0.2, PT 16.6 H, INR 1.3, APTT 29.1, Sodium 143, Potassium 2.9 L, Chloride 101, Carbon Dioxide 18.1 L, Anion Gap 23 H, BUN 13, Creatinine 1.41 H, Estim Creat Clear Calc 43.94 L, Est GFR (MDRD) Non-Af 54 L, BUN/Creatinine Ratio 9.4 L, Glucose 201 H, Lactic Acid 11.0 H*, Calcium 9.6, Magnesium 2.6 H, Total Bilirubin 0.53, AST 26, ALT 17, Alkaline Phosphatase 75, Total Creatine Kinase 81, Troponin T High Sens 19, NT pro BNP II 139, Total Protein 7.1, Albumin 4.0, Globulin 3.2, Albumin/Globulin Ratio 1.2, Triglycerides 254 H 09/19/25 11:47: Ethyl Alcohol < 10.1 09/19/25 13:03: Urine Color Yellow, Urine Clarity Cloudy, Urine pH 6.5, Ur Specific [place] 1.020, Urine Protein 500 H, Urine Glucose (UA) 100 H, Urine Ketones Negative, Urine Occult Blood 250 H, Urine Nitrite Negative, Urine Bilirubin Negative, Urine Urobilinogen Normal, Ur Leukocyte Esterase Negative, Urine RBC 5-10 SEEN, Urine WBC 0-5 SEEN, Ur Squamous Epith Cells 0 SEEN, Amorphous Sediment 1+, Urine Bacteria 0 SEEN, Urine Mucus 0 SEEN, Urine Opiates Screen NEGATIVE, U Buprenorphine Qual NEGATIVE, Ur Oxycodone Screen NEGATIVE, Urine Methadone Screen NEGATIVE, Urine Fentanyl Screen NEGATIVE, Ur Barbiturates Screen NEGATIVE, Ur Phencyclidine Scrn NEGATIVE, Ur Amphetamines Screen NEGATIVE, U Benzodiazepines Scrn NEGATIVE, Urine Cocaine Screen NEGATIVE, U Cannabinoids Screen NEGATIVE 09/19/25 14:06: Troponin T Hi Sens 2 Hr 310 H* Micro: Microbiology 09/19/25 11:49 Sputum, Induced/Lukens Gram Stain - Final 09/19/25 12:17 Mucosa - Nose SARS-CoV-2, Influenza & RSV (PCR) - Final ABG Data ABG results: ABG 09/19/25 09/19/25 09/19/25 11:45 12:14 13:36 Specimen Type ART ART ART Sample Site L Radial R Radial L Radial pH 6.86 L* 6.92 L* 7.08 L* Bicarbonate Actual 23.0 24.7 26.3 H Total CO2 27 29 29 Base Excess -11 L -8 L -4 L O2 Saturation 59 L 79 L 85 L O2 % 15.0 100.0 100.0 ABG pCO2 127.8 H* 121.6 H* 89.3 H* ABG pO2 56 L 74 L 72 L Bennie Test Positive Positive Respiration Rate 16 22 O2 Delivery Device Bagging Adult Vent Adult Vent Vent Mode Not entered Not entered AC/VC Tidal Volume 500.0 POC PEEP 12 Crit Call To/Read Back Yes Yes Yes Blood Gas Notified Whom Dr. Edenilson Pyle Blood Gas Notified Time 11:46:57 13:41:44 Attestation: I personally reviewed and interpreted this ABG as follows: Interpretation: Patient remains severely acidotic with likely metabolic acidosis. pH is increasing. Rhythm Strip Rhythm Strip: Sinus Rhythm (No further significant arrhythmias appreciated.) Cardiology Labs/Tests 09/19/25 11:17: WBC 13.0 H, RBC 4.57 L, Hgb 14.3, Hct 46.8, MCV 102.4 H, MCH 31.3, MCHC 30.6 L, Plt Count 181, MPV 10.9, Immature Gran % (Auto) 1.900 H, Neut % (Auto) 52.1, Lymph % (Auto) 34.1, Dickey % (Auto) 9.0, Eos % (Auto) 1.7, Baso % (Auto) 1.2 H, Absolute Neuts (auto) 6.8, Nucleated RBC % 0.2, PT 16.6 H, INR 1.3, APTT 29.1, Sodium 143, Potassium 2.9 L, Chloride 101, Carbon Dioxide 18.1 L, Anion Gap 23 H, BUN 13, Creatinine 1.41 H, Est GFR (MDRD) Non-Af 54 L, BUN/Creatinine Ratio 9.4 L, Glucose 201 H, Lactic Acid 11.0 H*, Calcium 9.6, Magnesium 2.6 H, Total Bilirubin 0.53, Triglycerides 254 H 09/19/25 11:45: pH 6.86 L*, Bicarbonate Actual 23.0, Base Excess -11 L, O2 Saturation 59 L, ABG pCO2 127.8 H*, ABG pO2 56 L, Bennie Test Positive 09/19/25 12:14: pH 6.92 L*, Bicarbonate Actual 24.7, Base Excess -8 L, O2 Saturation 79 L, ABG pCO2 121.6 H*, ABG pO2 74 L 09/19/25 13:03: Urine Color Yellow, Urine Clarity Cloudy, Urine pH 6.5, Ur Specific [place] 1.020, Urine Protein 500 H, Urine Glucose (UA) 100 H, Urine Ketones Negative, Urine Occult Blood 250 H, Urine Nitrite Negative, Urine Bilirubin Negative, Urine Urobilinogen Normal, Ur Leukocyte Esterase Negative, Urine RBC 5-10 SEEN, Urine WBC 0-5 SEEN 09/19/25 13:36: pH 7.08 L*, Bicarbonate Actual 26.3 H, Base Excess -4 L, O2 Saturation 85 L, ABG pCO2 89.3 H*, ABG pO2 72 L, Bennie Test Positive Rhythm: EKG: ECHO: Preliminary echocardiogram results 09/19/2025 show low normal ejection fraction with severely dilated right ventricle. Moderate RV dysfunction noted. Mild valvular heart disease. Full report to follow. Stress Test: Cardiac Cath: PCI: CT Surgery: Holter monitor: EPS: PPM: CXR: Chest CT Scan: Radiography Diagnostic Testing: Radiology Impression Chest X-Ray 09/19/25 11:30 IMPRESSION: Satisfactory position of the endotracheal and nasogastric tubes. Reading Location: [facility] Brain CT 09/19/25 11:[address]: [address] evidence of acute intracranial hemorrhage, transcortical infarct, or significant mass effect. 2. 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 3. No acute fracture or dislocation in the cervical spine. Reading Location: [id number] Cervical Spine CT 09/19/25 11:39 IMPRESSION: 1. No CT evidence of acute intracranial hemorrhage, transcortical infarct, or significant mass effect. 2. 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 3. No acute fracture or dislocation in the cervical spine. Reading Location: [id number] Chest CTA 09/19/25 11:43 IMPRESSION: Extensive bilateral pulmonary emboli involving the right and left main, lobar, segmental, and subsegmental pulmonary arteries. Imaging evidence of right heart strain with interventricular septal flattening and reflux of contrast into the inferior vena cava. Right lower lobe peripheral triangular opacities, most consistent with pulmonary infarcts. Cardiomegaly with coronary artery calcifications. Incidental right renal upper pole 23 mm indeterminate lesion with attenuation of 44 Hounsfield units, incompletely characterized on this examination. Further evaluation with nonemergent dedicated renal protocol CT or MRI is recommended. Critical results were communicated to EMETERIO BOURGEOIS DR. At 1:20 p.m.. Reading Location: [facility] Risk Score for UA/STEMI Assesmment (YES = 1) Risk Stratification Applicable: No
[2025-09-19 15:37] LABS: Reflex Lactate? Y
--- NOTE | 2025-09-19 15:59 | CASEMGMT ---
Social Work- SW responded to [employer] for pt. SW offered support to pt family. Pt dtr reports that pt a few months ago. Pt sisters were brought back to the room once pt was stabilized and a discussion was initiated regarding plan of care. Pt family reports no SW needs as the have ongoing discussion on next steps of intervention and code status. SW remans available to follow for additional education and support. SHANELL Winters
--- NOTE | 2025-09-19 16:05 | EX.PCM.CON.S ---
Assessment & Plan Assessment/Plan (1) Acute pulmonary embolism with acute cor pulmonale: QUALIFIERS: Pulmonary embolism type: saddle Qualified Code(s): I26.02 - Saddle embolus of pulmonary artery with acute cor pulmonale PLAN: -no corneal/gag reflex, no response to external stimuli, no pupillary response likely from pre-hospital anoxic brain injury -increasing difficulty with oxygenation, combination PE/aspiration/body habitus all contributing -RV/RA dilated but with some chronic component given hemodynamic status -dysrhythmias likely from anoxia prior to hospital and ongoing hypoxia -discussed with cardiology, critical care, hospitalist, ED and family billing customer service representative -with uncertain neurologic status/possible severe anoxic brain injury/brain would no pursue thrombectomy at this time -TNK considered by family but they have opted not to pursue -cont heparin -will follow HPI Consult Data Date of Consult: 09/19/25 HPI Narrative HPI Narrative: HAYES GORDON, is a 70 M who presents with abrupt loss of consciousness, cardiac arrest. He had immediate CPR performed by a nurse practitioner who witnessed the event. He had return of pulse after 30 seconds though he remained apneic/agonal respirations. Upon arrival at ED he had no response to stimuli and was intubated. During intubation he became bradycardic and required ACLS. CTA revealed bilateral PE with dilated RV/RA. He was hemodynamically stable with HR in 80s, SBP 120-140. He had poor saturation despite 100% FiO2 and increasing PEEP. A second event of bradycardia progressing to hemodynamic compromise occurred after reaching ICU which again responded to brief ACLS. [facility] Medical History Tumor Kidney stones Home Medications ?Medication ?Instructions ?Recorded ?Last Taken ?Type NK 01/23/22 Unknown History Allergy/AdvReac Type Severity Reaction Status Date / Time Penicillins Allergy Hives Verified 09/19/25 11:16 Social History Smoking Status: Never smoker ROS Review of Systems ROS Unobtainable: due to endotracheal tube Physical Exam Const General Appearance: intubated and patient mechanically ventilated Exam Limitations: altered mental status HEENT Head and Scalp: normocephalic and atraumatic Eyes Eyes Narrative: no corneal reflex Neck General: trachea midline Resp Resp Narrative: mechanically ventilated, no spont respirations Cardio regular rate and regular rhythm Skin no rashes or lesions noted and no wounds Neuro oriented x3, CN's II-XII intact bilaterally, no focal motor deficits and no sensory deficits noted Psych thought process normal, cooperative, affect normal, speech normal and activity/motor behavior normal Lab / Micro Data 09/19/25 11:17 09/19/25 11:17 Labs: Laboratory Results - last 24 hr 09/19/25 11:17: WBC 13.0 H, RBC 4.57 L, Hgb 14.3, Hct 46.8, MCV 102.4 H, MCH 31.3, MCHC 30.6 L, RDW Std Deviation 50.4 H, RDW Coeff of [place] 13.2, Plt Count 181, MPV 10.9, Immature Gran % (Auto) 1.900 H, Neut % (Auto) 52.1, Lymph % (Auto) 34.1, [place] % (Auto) 9.0, Eos % (Auto) 1.7, Baso % (Auto) 1.2 H, Absolute Neuts (auto) 6.8, Absolute Lymphs (auto) 4.43, Nucleated RBC % 0.2, PT 16.6 H, INR 1.3, APTT 29.1, Sodium 143, Potassium 2.9 L, Chloride 101, Carbon Dioxide 18.1 L, Anion Gap 23 H, BUN 13, Creatinine 1.41 H, Estim Creat Clear Calc 43.94 L, Est GFR (MDRD) Non-Af 54 L, BUN/Creatinine Ratio 9.4 L, Glucose 201 H, Lactic Acid 11.0 H*, Calcium 9.6, Magnesium 2.6 H, Total Bilirubin 0.53, AST 26, ALT 17, Alkaline Phosphatase 75, Total Creatine Kinase 81, Troponin T High Sens 19, NT pro BNP II 139, Total Protein 7.1, Albumin 4.0, Globulin 3.2, Albumin/Globulin Ratio 1.2, Triglycerides 254 H 09/19/25 11:47: Ethyl Alcohol < 10.1 09/19/25 13:03: Urine Color Yellow, Urine Clarity Cloudy, Urine pH 6.5, Ur Specific [place] 1.020, Urine Protein 500 H, Urine Glucose (UA) 100 H, Urine Ketones Negative, Urine Occult Blood 250 H, Urine Nitrite Negative, Urine Bilirubin Negative, Urine Urobilinogen Normal, Ur Leukocyte Esterase Negative, Urine RBC 5-10 SEEN, Urine WBC 0-5 SEEN, Ur Squamous Epith Cells 0 SEEN, Amorphous Sediment 1+, Urine Bacteria 0 SEEN, Urine Mucus 0 SEEN, Urine Opiates Screen NEGATIVE, U Buprenorphine Qual NEGATIVE, Ur Oxycodone Screen NEGATIVE, Urine Methadone Screen NEGATIVE, Urine Fentanyl Screen NEGATIVE, Ur Barbiturates Screen NEGATIVE, Ur Phencyclidine Scrn NEGATIVE, Ur Amphetamines Screen NEGATIVE, U Benzodiazepines Scrn NEGATIVE, Urine Cocaine Screen NEGATIVE, U Cannabinoids Screen NEGATIVE 09/19/25 14:06: Troponin T Hi Sens 2 Hr 310 H* 09/19/25 15:36: POC Glucose 237 H Micro: Microbiology 09/19/25 11:49 Sputum, Induced/Lukens Gram Stain - Final 09/19/25 12:17 Mucosa - Nose SARS-CoV-2, Influenza & RSV (PCR) - Final ABG Data ABG results: ABG 09/19/25 09/19/25 09/19/25 11:45 12:14 13:36 Specimen Type ART ART ART Sample Site L Radial R Radial L Radial pH 6.86 L* 6.92 L* 7.08 L* Bicarbonate Actual 23.0 24.7 26.3 H Total CO2 27 29 29 Base Excess -11 L -8 L -4 L O2 Saturation 59 L 79 L 85 L O2 % 15.0 100.0 100.0 ABG pCO2 127.8 H* 121.6 H* 89.3 H* ABG pO2 56 L 74 L 72 L Bennie Test Positive Positive Respiration Rate 16 22 O2 Delivery Device Bagging Adult Vent Adult Vent Vent Mode Not entered Not entered AC/VC Tidal Volume 500.0 POC PEEP 12 Crit Call To/Read Back Yes Yes Yes Blood Gas Notified Whom Dr. Edenilson Pyle Blood Gas Notified Time 11:46:57 13:41:44 Rhythm Strip Rhythm Strip: Sinus Rhythm (No further significant arrhythmias appreciated.) Imaging Radiology Impression Chest X-Ray 09/19/25 11:30 IMPRESSION: Satisfactory position of the endotracheal and nasogastric tubes. Reading Location: [facility] Brain CT 09/19/25 11:31 IMPRESSION: 1. No CT evidence of acute intracranial hemorrhage, transcortical infarct, or significant mass effect. 2. 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 3. No acute fracture or dislocation in the cervical spine. Reading Location: [facility] Cervical Spine CT 09/19/25 11:39 IMPRESSION: 1. No CT evidence of acute intracranial hemorrhage, transcortical infarct, or significant mass effect. 2. 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 3. No acute fracture or dislocation in the cervical spine. Reading Location: [facility] Chest CTA 09/19/25 11:43 IMPRESSION: Extensive bilateral pulmonary emboli involving the right and left main, lobar, segmental, and subsegmental pulmonary arteries. Imaging evidence of right heart strain with interventricular septal flattening and reflux of contrast into the inferior vena cava. Right lower lobe peripheral triangular opacities, most consistent with pulmonary infarcts. Cardiomegaly with coronary artery calcifications. Incidental right renal upper pole 23 mm indeterminate lesion with attenuation of 44 Hounsfield units, incompletely characterized on this examination. Further evaluation with nonemergent dedicated renal protocol CT or MRI is recommended. Critical results were communicated to EMETERIO BOURGEOIS DR. At 1:20 p.m.. Reading [facility] Charges/Coding Visit Charges Inpatient E&M: 69768 Init Hosp L2
--- NOTE | 2025-09-19 16:28 | PCM.CODE.SUM ---
Code Blue Report Code Blue Summary Code Blue Summary: I was present in the ICU just finished completing a cardioversion on the patient when a rapid response was called. I presented to the room for evaluation of the patient since I had previously/recently seen him in the emergency department and it was noted that the patient bradycardia down and went into PEA cardiac arrest. Upon me walking into the room CPR was initiated therefore was advised that first dose of epinephrine be given at around 1539 and also ordered 3 Amps of bicarb. CPR continued for around total of 3 to 4 minutes and upon the initial pulse check patient was noted to be in sinus tachycardia with a palpable pulse therefore CODE BLUE was ended. Long discussion with the family surrounding patient's current status. Unsure if patient has a recoverable neurologic status aware that patient does have bilateral pulmonary embolism which could be potentially contributing to his current issues with cardiac arrest. Discussion with the hospitalist team and after further discussion with the family if they are agreeable recommend consideration for proceeding with tPA. The risk, benefit, and alternatives were discussed with the family and upon my leaving they were still determining if they wanted to proceed or not. I also had a quick discussion about CODE STATUS either continuing with full code versus changing to DNR CODE STATUS. Family also plans to evaluate this decision.
--- NOTE | 2025-09-19 16:45 | PCM.HP.STD ---
HPI - General General Date of Admission: 09/19/25 Date of Service: 09/19/25 Chief Complaint: Found down in a department store, cardiac arrest HPI Narrative HAYES GORDON, is a 70 M who presents to the emergency room at [facility] after being found down at a local department store, CPR was begun by a nurse practitioner who was present but it was stopped when she thought she felt a pulse. Squad brought the patient to the emergency room on a nonrebreather, he was intubated and underwent workup in the emergency room. Labs were obtained which showed a normal white blood cell count, chemistry profile was remarkable for potassium of 2.9, creatinine of 1.41, and lactic acid of 11. Glucose was 201, troponin was 19, chest x-ray obtained after intubation showed atelectasis or airspace disease in the right upper lobe otherwise lungs are clear. CT of the brain showed no CT evidence of acute intracranial hemorrhage, transcortical infarct or significant mass effect there was focal left occipital lobe hypoattenuation which favored a chronic infarct. Patient had an episode of V. tach in the emergency room and a CODE BLUE was called, patient was cardioverted and placed on amiodarone drip. Cardiology was contacted and critical care was also contacted. CTA of the chest showed extensive bilateral pulmonary emboli involving the right and left lobar, segmental, and subsegmental pulmonary arteries. There was evidence of right heart strain. Patient was placed on a heparin drip. Patient was transferred to ICU for admission. [facility] Medical History Tumor Kidney stones Home Medications ?Medication ?Instructions ?Recorded ?Last Taken ?Type NK 01/23/22 Unknown History Allergy/AdvReac Type Severity Reaction Status Date / Time Penicillins Allergy Hives Verified 09/19/25 11:16 Social History Smoking Status: Never smoker ROS ROS Narrative Patient is unresponsive and on the ventilator Patient's Goals Of Care . Unable to discuss care goals with the patient and or patient development representative at this time: Yes Vital Signs Vital Signs Vital Signs: 09/19/25 11:11 09/19/25 11:15 09/19/25 11:17 Temperature 97.8 F 96.2 F L Temperature [1] Temperature [2] Temperature Source Temporal Core Pulse Rate 84 86 100 Pulse Rate [1] Pulse Rate [2] Respiratory Rate 40 H 16 16 Respiratory Rate [1] Respiratory Rate [2] Respiratory Effort Respiratory Depth Respiratory Pattern Normal Blood Pressure 153/117 H 131/79 H Blood Pressure [1] Blood Pressure [2] Blood Pressure Mean 129 96 Blood Pressure Source Blood Pressure Position Blood Pressure Location Pulse Ox 75 73 Oxygen Delivery Method Oxygen Flow Rate (L/min) 100 Fraction of Inspired Oxygen (FIO2) 100 09/19/25 11:17 09/19/25 11:18 09/19/25 11:24 Temperature Temperature [1] Temperature [2] 98.7 F Temperature Source Pulse Rate Pulse Rate [1] 0 L Pulse Rate [2] 113 H Respiratory Rate Respiratory Rate [1] Respiratory Rate [2] 25 H Respiratory Effort Normal Accessory Muscle Use Respiratory Depth Shallow Respiratory Pattern Normal Irregular Blood Pressure Blood Pressure [1] Blood Pressure [2] 130/79 H Blood Pressure Mean Blood Pressure Source Blood Pressure Position Blood Pressure Location Pulse Ox Oxygen Delivery Method Ambu-Bag Oxygen Flow Rate (L/min) Fraction of Inspired Oxygen (FIO2) 09/19/25 12:17 09/19/25 13:11 09/19/25 13:33 Temperature 98.5 F 98.2 F Temperature [1] Temperature [2] Temperature Source Core Core Pulse Rate 94 98 93 Pulse Rate [1] Pulse Rate [2] Respiratory Rate 20 H 22 H 22 H Respiratory Rate [1] Respiratory Rate [2] Respiratory Effort Respiratory Depth Respiratory Pattern Blood Pressure 165/89 H 148/86 H 142/82 H Blood Pressure [1] Blood Pressure [2] Blood Pressure Mean 114 106 102 Blood Pressure Source Blood Pressure Position Blood Pressure Location Pulse Ox 93 93 93 Oxygen Delivery Method Mechanical Ventilator Mechanical Ventilator Room Air Oxygen Flow Rate (L/min) Fraction of Inspired Oxygen (FIO2) 09/19/25 14:00 09/19/25 14:06 09/19/25 14:30 Temperature 98.2 F 98.2 F 98.6 F Temperature [1] Temperature [2] Temperature Source Core Core Pulse Rate 91 91 90 Pulse Rate [1] Pulse Rate [2] Respiratory Rate 26 H 22 H 18 Respiratory Rate [1] Respiratory Rate [2] Respiratory Effort Respiratory Depth Respiratory Pattern Blood Pressure 136/78 H 132/81 H 120/78 Blood Pressure [1] Blood Pressure [2] Blood Pressure Mean 97 98 92 Blood Pressure Source Blood Pressure Position Blood Pressure Location Pulse Ox 93 92 92 Oxygen Delivery Method Mechanical Ventilator Mechanical Ventilator Oxygen Flow Rate (L/min) Fraction of Inspired Oxygen (FIO2) 09/19/25 15:00 09/19/25 15:04 09/19/25 15:15 Temperature 96.9 F L 98.2 F Temperature [1] Temperature [2] Temperature Source Core Core Pulse Rate 96 81 81 Pulse Rate [1] Pulse Rate [2] Respiratory Rate 24 H 22 H 19 H Respiratory Rate [1] Respiratory Rate [2] Respiratory Effort Respiratory Depth Respiratory Pattern Normal Blood Pressure 118/76 89/64 L Blood Pressure [1] Blood Pressure [2] Blood Pressure Mean 90 72 Blood Pressure Source Monitor Blood Pressure Position Semi-Fowlers Blood Pressure Location Left Arm Pulse Ox 91 81 Oxygen Delivery Method Mechanical Ventilator Mechanical Ventilator Oxygen Flow Rate (L/min) Fraction of Inspired Oxygen (FIO2) 100 100 09/19/25 15:30 09/19/25 15:38 09/19/25 15:45 Temperature 98.2 F 98.2 F Temperature [1] 98.2 F Temperature [2] Temperature Source Core Core Pulse Rate 66 107 H Pulse Rate [1] 102 H Pulse Rate [2] Respiratory Rate 21 H 16 Respiratory Rate [1] 16 Respiratory Rate [2] Respiratory Effort Respiratory Depth Respiratory Pattern Blood Pressure 74/53 L 156/94 H Blood Pressure [1] 74/53 L Blood Pressure [2] Blood Pressure Mean 60 114 Blood Pressure Source Monitor Monitor Blood Pressure Position Semi-Fowlers Semi-Fowlers Blood Pressure Location Left Arm Left Arm Pulse Ox 72 36 Oxygen Delivery Method Mechanical Ventilator Mechanical Ventilator Oxygen Flow Rate (L/min) Fraction of Inspired Oxygen (FIO2) 100 100 09/19/25 16:00 09/19/25 16:15 Temperature 98.1 F 98.1 F Temperature [1] Temperature [2] Temperature Source Core Core Pulse Rate 92 73 Pulse Rate [1] Pulse Rate [2] Respiratory Rate 22 H 22 H Respiratory Rate [1] Respiratory Rate [2] Respiratory Effort Respiratory Depth Respiratory Pattern Blood Pressure 95/70 72/53 L Blood Pressure [1] Blood Pressure [2] Blood Pressure Mean 78 59 Blood Pressure Source Monitor Monitor Blood Pressure Position Semi-Fowlers Semi-Fowlers Blood Pressure Location Left Arm Left Arm Pulse Ox 93 87 Oxygen Delivery Method Mechanical Ventilator Mechanical Ventilator Oxygen Flow Rate (L/min) Fraction of Inspired Oxygen (FIO2) 100 100 Weight Weight: 149.95 kg Body Mass Index (BMI) 41.3 Physical Exam Const Constitutional Narrative: Patient is comatose and does not respond to his painful or verbal stimuli HEENT normocephalic, head/scalp atraumatic and moist oral mucous membranes Eyes Eyes Narrative: Pupils are mid point and fixed, he does not have a corneal reflex Neck no JVD, thyroid normal and no carotid bruits General: trachea midline Resp normal respiratory effort Resp Narrative: Patient has no spontaneous respirations, ventilator is providing respirations Auscultation: Negative for rales, rhonchi or wheezes Cardio regular rate, regular rhythm, S1 normal heart sound, S2 normal heart sound, no murmurs, no rub and no gallops Cardio Narrative: Heart rate and rhythm is tachycardic GI non-distended GI Narrative: Patient has normal bowel sounds Extremity no clubbing, cyanosis or edema Skin no rashes or lesions noted General Skin Exam: no breakdown Neuro Neuro Narrative: Patient's pupils are midpoint and fixed, no corneal reflexes were noted to be present, patient does not move any extremities Psych Psych Narrative: Patient is comatose Results Lab / Micro Data 09/19/25 11:17 09/19/25 11:17 Labs: Laboratory Results - last 24 hr 09/19/25 11:17: WBC 13.0 H, RBC 4.57 L, Hgb 14.3, Hct 46.8, MCV 102.4 H, MCH 31.3, MCHC 30.6 L, RDW Std Deviation 50.4 H, RDW Coeff of [place] 13.2, Plt Count 181, MPV 10.9, Immature Gran % (Auto) 1.900 H, Neut % (Auto) 52.1, Lymph % (Auto) 34.1, [place] % (Auto) 9.0, Eos % (Auto) 1.7, Baso % (Auto) 1.2 H, Absolute Neuts (auto) 6.8, Absolute Lymphs (auto) 4.43, Nucleated RBC % 0.2, PT 16.6 H, INR 1.3, APTT 29.1, Sodium 143, Potassium 2.9 L, Chloride 101, Carbon Dioxide 18.1 L, Anion Gap 23 H, BUN 13, Creatinine 1.41 H, Estim Creat Clear Calc 43.94 L, Est GFR (MDRD) Non-Af 54 L, BUN/Creatinine Ratio 9.4 L, Glucose 201 H, Lactic Acid 11.0 H*, Calcium 9.6, Magnesium 2.6 H, Total Bilirubin 0.53, AST 26, ALT 17, Alkaline Phosphatase 75, Total Creatine Kinase 81, Troponin T High Sens 19, NT pro BNP II 139, Total Protein 7.1, Albumin 4.0, Globulin 3.2, Albumin/Globulin Ratio 1.2, Triglycerides 254 H 09/19/25 11:47: Ethyl Alcohol < 10.1 09/19/25 13:03: Urine Color Yellow, Urine Clarity Cloudy, Urine pH 6.5, Ur Specific [place] 1.020, Urine Protein 500 H, Urine Glucose (UA) 100 H, Urine Ketones Negative, Urine Occult Blood 250 H, Urine Nitrite Negative, Urine Bilirubin Negative, Urine Urobilinogen Normal, Ur Leukocyte Esterase Negative, Urine RBC 5-10 SEEN, Urine WBC 0-5 SEEN, Ur Squamous Epith Cells 0 SEEN, Amorphous Sediment 1+, Urine Bacteria 0 SEEN, Urine Mucus 0 SEEN, Urine Opiates Screen NEGATIVE, U Buprenorphine Qual NEGATIVE, Ur Oxycodone Screen NEGATIVE, Urine Methadone Screen NEGATIVE, Urine Fentanyl Screen NEGATIVE, Ur Barbiturates Screen NEGATIVE, Ur Phencyclidine Scrn NEGATIVE, Ur Amphetamines Screen NEGATIVE, U Benzodiazepines Scrn NEGATIVE, Urine Cocaine Screen NEGATIVE, U Cannabinoids Screen NEGATIVE 09/19/25 14:06: Troponin T Hi Sens 2 Hr 310 H* 09/19/25 15:36: POC Glucose 237 H Micro: Microbiology 09/19/25 11:49 Sputum, Induced/Lukens Gram Stain - Final 09/19/25 12:17 Mucosa - Nose SARS-CoV-2, Influenza & RSV (PCR) - Final ABG Data ABG results: ABG 09/19/25 09/19/25 09/19/25 11:45 12:14 13:36 Specimen Type ART ART ART Sample Site L Radial R Radial L Radial pH 6.86 L* 6.92 L* 7.08 L* Bicarbonate Actual 23.0 24.7 26.3 H Total CO2 27 29 29 Base Excess -11 L -8 L -4 L O2 Saturation 59 L 79 L 85 L O2 % 15.0 100.0 100.0 ABG pCO2 127.8 H* 121.6 H* 89.3 H* ABG pO2 56 L 74 L 72 L Bennie Test Positive Positive Respiration Rate 16 22 O2 Delivery Device Bagging Adult Vent Adult Vent Vent Mode Not entered Not entered AC/VC Tidal Volume 500.0 POC PEEP 12 Crit Call To/Read Back Yes Yes Yes Blood Gas Notified Whom Dr. Edenilson Pyle Blood Gas Notified Time 11:46:57 13:41:44 Rhythm Strip Rhythm Strip: Sinus Rhythm (No further significant arrhythmias appreciated.) Imaging Radiology Impression Chest X-Ray 09/19/25 11:30 IMPRESSION: Satisfactory position of the endotracheal and nasogastric tubes. Reading Location: [id number] Brain CT 09/19/25 11:31 IMPRESSION: 1. No CT evidence of acute intracranial hemorrhage, transcortical infarct, or significant mass effect. 2. 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 3. No acute fracture or dislocation in the cervical spine. Reading Location: [id number] Cervical Spine CT 09/19/25 11:39 IMPRESSION: 1. No CT evidence of acute intracranial hemorrhage, transcortical infarct, or significant mass effect. 2. 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 3. No acute fracture or dislocation in the cervical spine. Reading Location: [id number] Chest CTA 09/19/25 11:43 IMPRESSION: Extensive bilateral pulmonary emboli involving the right and left main, lobar, segmental, and subsegmental pulmonary arteries. Imaging evidence of right heart strain with interventricular septal flattening and reflux of contrast into the inferior vena cava. Right lower lobe peripheral triangular opacities, most consistent with pulmonary infarcts. Cardiomegaly with coronary artery calcifications. Incidental right renal upper pole 23 mm indeterminate lesion with attenuation of 44 Hounsfield units, incompletely characterized on this examination. Further evaluation with nonemergent dedicated renal protocol CT or MRI is recommended. Critical results were communicated to EMETERIO BOURGEOIS DR. At 1:20 p.m.. Reading Location: [facility] Assessment & Plan Assessment/Plan (1) Cardiac arrest: PLAN: Plan 1. Status post cardiac arrest secondary to pulmonary embolism-patient will be admitted to ICU on IV anticoagulation, he will be seen in consultation by vascular surgery, he will also be seen by critical care and cardiology. #2 ventricular tachycardia-patient is currently on amiodarone, cardiology is participating in his care #3 acute respiratory failure secondary to #1-critical care will be seeing patient #4 hypokalemia-potassium replacement will need to be given IV #5 elevated creatinine-significance unknown at this time, labs will be monitored #6 elevated lactic acid-secondary to acute respiratory failure Total clinical time spent by myself addressing the patient's medical issues, reviewing all of his data, and collaborating with patient's care team: 75 minutes Charges/Coding Visit Charges Inpatient E&M: 99440 Init Hosp L3
--- NOTE | 2025-09-19 17:16 | PCM.DEATH ---
Preliminary Cause of Preliminary Cause of Preliminary Cause of : Massive pulmonary embolism resulting in cardiac arrest and respiratory failure with acidosis Date of Admission: 09/19/25 Date of : 09/19/25 Principle Diagnosis 1. Massive pulmonary embolism #2 cardiac arrest secondary to #1 #3 acute hypoxic respiratory failure #4 acidosis secondary to #2 and 3 #5 probable anoxic brain injury #6 hypokalemia #7 lactic acidosis secondary to acute respiratory failure #8 ventricular tachycardia Problem List: Active and Suspected Problems (Updated 09/19/25 @ 16:[address] Alvino Foy MD) Ventricular tachycardia (Acute) Acute pulmonary embolism with acute cor pulmonale (Acute) Cardiac arrest (Acute) Acute respiratory failure with hypoxia and hypercapnia (Acute) Hospital Course 70-year-old white male was seen in the emergency room at [facility] after being brought in by squad after collapsing in a department store. This was witnessed and the patient underwent a brief round of CPR from a nurse practitioner, this was stopped with the nurse practitioner felt a faint pulse. Patient was brought in on a nonrebreather and intubated in the emergency room, imaging study showed that he had a massive pulmonary embolism bilaterally, the case was discussed with critical care and cardiology, the patient was placed on IV heparin and while in the ER, had an episode of ventricular tachycardia and was coded. He was cardioverted and returned to sinus tachycardia, he was started on amiodarone and ultimately was transferred to ICU. Consideration was made regarding a thrombectomy but it was noted that the patient had fixed pupils at the midpoint which were nonreactive, and he had no corneal reflex. Shortly after being admitted to ICU, patient coded-went into a bradycardia without pulse and a short period of CPR was delivered. Patient's pulse rate came back up and the family was present in the room and conversations were carried out with the family members as to whether they would want tenecteplase administered-there were concerns about the possibility the patient had anoxic brain injury. After discussions with the family, the family decided that they did not want tenecteplase ordered, the patient's vital signs declined and he ultimately on 09/19/2025 at 1623.
--- NOTE | 2025-09-19 18:54 | CM.ED ---
Social Work Reason for visit: Code Blue Patients son, daughter, DIL, and step daughter present. Emotional support provided as needed. Candelaria Atkinson, [employer], [employer]
== END 2025-09-19 18:20 | DRG 208 ==
LOC: ED 12:17 → ICU 14:27
PROVIDERS: Admitting Provider Internal Medicine; Emergency Provider Surgery; PCP Family Medicine; Visit Provider Internal Medicine
DX: I26.02 Saddle embolus of pulmonary artery with acute cor pulmonale (principal); J96.02 Acute respiratory failure with hypercapnia; J96.01 Acute respiratory failure with hypoxia; G93.1 Anoxic brain damage, not elsewhere classified; G93.40 Encephalopathy, unspecified; I47.20 Ventricular tachycardia, unspecified; E87.20 Acidosis, unspecified; I46.9 Cardiac arrest, cause unspecified; I45.10 Unspecified right bundle-branch block; R00.1 Bradycardia, unspecified; E87.6 Hypokalemia; I25.10 Atherosclerotic heart disease of native coronary artery without angina pectoris; N28.9 Disorder of kidney and ureter, unspecified; R79.89 Other specified abnormal findings of blood chemistry
CPT/HCPCS: 31500; 36600; 70450; 71045; 71275; 72125; 80053; 80307; 81001; 82077; 82550; 82803; 82962; 83605; 83735; 83880; 84478; 84484; 85025; 85610; 85730; 87040; 87070; 87086; 87205; 87631; 92950; 93005; 93306; 94002; 99285; J2185; Q9967; A4216